=== PATIENT | male | born 1990 | race Caucasian/White ===

== ENCOUNTER 2023-07-22 12:11 | Emergency (ER) | payer OTHER ==
[2023-07-22 12:42] VITALS: RESP 17; BMI 22.7
[2023-07-22] MEDS ORDERED: IBUPROFEN 400 MG TABLET (FP) PO ONE (13:47)
[2023-07-22] MEDS: IBUPROFEN 400 MG TABLET (FP) PO ONE (13:53)
[2023-07-22] MEDS ORDERED: FAMOTIDINE 20 MG TABLET ONE ×2 (14:58)
[2023-07-22] MEDS: FAMOTIDINE 20 MG TABLET PO ONE (15:01)
[2023-07-22] MEDS ORDERED: ACETAMINOPHEN INJECTION 100 ML IVPB ONE (15:15)
[2023-07-22] MEDS ORDERED: MAG HYDROX/AL HYDROX/SIMETH 30 ML UNIT-DOSE CUP ONE (15:15)
[2023-07-22] MEDS: MAG HYDROX/AL HYDROX/SIMETH 30 ML UNIT-DOSE CUP PO ONE (15:29)
[2023-07-22] MEDS: SODIUM CHLORIDE 0.9% 500 ML INFUS.BAG IV ONE (15:29)
[2023-07-22] MEDS: ACETAMINOPHEN 1000 MG/100 ML BAG IVPB ONE (15:29)
[2023-07-22 15:32] LABS: BASO % 0.4 % (0-2.0); EOS % 0.3 % (0-4.5); HEMATOCRIT 41.3 % (35.4-49); HEMOGLOBIN 14.4 GM/dL (11.7-16.9); LYMPH % 4.5 % (8-40); MCH 29.4 pg (25.7-33.7); MCHC 34.9 g/dl (32.0-35.9); MEAN CELL VOLUME 84.4 fl (80-96); MEAN PLT VOLUME 9.4 fl (7.5-11.1); MONO % 3.9 % (3.8-10.2); NEUT % 90.9 % (42.8-82.8); PLATELET COUNT 131 10^3/uL (134-434); RDW 13.5 % (11.9-15.9); WHITE BLOOD COUNT 10.1 K/mm3 (4.0-10.0)
[2023-07-22 15:54] LABS: INR 1.09 (0.83-1.09); PROTHROMBIN TIME (PATIENT) 12.6 SEC (9.7-13.0)
[2023-07-22 15:56] LABS: POTASSIUM 3.6 mmol/L (3.5-5.1)
[2023-07-22 15:58] LABS: CALCIUM 8.6 mg/dL (8.5-10.1)
[2023-07-22 16:01] LABS: CREATININE 0.8 mg/dL (0.55-1.3)
[2023-07-22 16:03] LABS: BILIRUBIN,TOTAL 0.9 mg/dL (0.2-1); TOT PROT 6.9 g/dl (6.4-8.2)
[2023-07-22 17:42] VITALS: TEMP 98.2
[2023-07-22 17:49] VITALS: BP 105/67; PULSE 86
== END 2023-07-22 18:13 | disposition home or self-care (01) ==
LOC: JER 12:11
PROC: 3E033NZ Introduction of Analgesics, Hypnotics, Sedatives into Peripheral Vein, Percutaneous Approach (ICD-10-PCS; principal; 2023-07-22)
DX: R10.815 Periumbilic abdominal tenderness (principal); R10.816 Epigastric abdominal tenderness; R50.9 Fever, unspecified; M79.10 Myalgia, unspecified site; R00.0 Tachycardia, unspecified; R19.7 Diarrhea, unspecified; J02.9 Acute pharyngitis, unspecified; Z20.822 Contact with and (suspected) exposure to COVID-19
CPT/HCPCS: 0241U-QW; 36415; 80053; 83605; 83690; 85025; 85610; 85730; 87070; 96374; 99284-25; J0131